=== PATIENT | female | born 1960 | race African-American/Black ===

== ENCOUNTER 2023-11-10 19:08 | Emergency (ER) | payer MEDICAID, OTHER ==
[~2023-11-10] VITALS: Ht 162.6 cm; Wt 81.6 kg
[2023-11-10 19:19] VITALS: BP 180/102; PULSE 103; RESP 16; TEMP 98.2; O2SAT 99
[2023-11-10 20:47] LABS: BASOPHILS % 0.7 % (0.0-2.0); EOSINOPHILS % 0.5 % (0.0-5.0); HEMATOCRIT. 39.4 % (36.0-48.0); HEMOGLOBIN. 13.2 g/dL (12.0-16.0); LYMPHOCYTES % 33.4 % (20.0-50.0); MEAN CORPUSCULAR HEMOGLOBIN 28.8 pg (28.0-32.0); MEAN CORPUSCULAR HGB CONC 33.5 g/dL (31.0-37.0); MEAN CORPUSCULAR VOLUME 86.1 fL (81.0-99.0); MEAN PLATELET VOLUME 8.6 fl (7.4-10.4); MONOCYTES % 5.3 % (2.0-8.0); NEUTROPHILS % 60.1 % (40.0-76.0); PLATELET 370 x1000/uL (130-400); RED BLOOD CELL COUNT 4.57 mill/uL (4.2-5.4); RED CELL DISTRIBUTION WIDTH 13.8 % (11.6-14.6); WHITE BLOOD COUNT 6.6 x1000/uL (4.5-11.0)
[2023-11-10 20:58] LABS: CHLORIDE 105 mEq/L (98-107); SODIUM 136 mEq/L (136-145)
[2023-11-10 20:59] LABS: CALCIUM 9.1 mg/dL (8.7-10.4); CARBON DIOXIDE 23 mEq/L (21-32)
[2023-11-10 21:04] LABS: CREATININE 1.6 mg/dL (0.6-1.0); GLUCOSE 205 mg/dL (70-105); TROPONIN I HIGH SENSITIVITY 12 ng/L (3.0-34); UREA NITROGEN BLOOD 12 mg/dL (9-23)
[2023-11-10 21:06] LABS: ALANINE AMINOTRANSFERASE 10 IU/L (10-49); ALBUMIN 4.1 g/dL (3.2-4.8); ASPARTATE AMINOTRANSFERASE 12 IU/L (<34); BILIRUBIN DIRECT 0.1 mg/dL (<=3.0); BILIRUBIN TOTAL 0.4 mg/dL (0.1-1.0); PROTEIN TOTAL 7.1 g/dL (6.0-8.3)
[2023-11-11 00:20] LABS: TROPONIN I HIGH SENSITIVITY 12 ng/L (3.0-34)
[2023-11-11] MEDS ORDERED: MAG-55 MT (03:02)
[2023-11-11] MEDS ORDERED: FAMO40TA70 MT (03:02)
== END 2023-11-11 03:35 | disposition home or self-care (01) ==
LOC: ER 19:08
DX: K44.9 Diaphragmatic hernia without obstruction or gangrene (principal); I31.39 Other pericardial effusion (noninflammatory); E11.9 Type 2 diabetes mellitus without complications
CPT/HCPCS: 36415; 71045; 74176; 80048; 80076; 84484; 85025; 93005; 99284

== ENCOUNTER 2024-09-25 06:56 | Inpatient (IN) | payer OTHER ==
[2024-09-25] VITALS (40 sets, daily range): BP systolic 66–208; BP diastolic 18–151; PULSE 75–89; RESP 12–27; TEMP 36.7–37.1; O2SAT 95–100
[~2024-09-25] VITALS: Ht 165.1 cm; Wt 83.3 kg
[~2024-09-25 06:56] MED LIST: FAMO40TA70 MT; MAG-55 MT
[2024-09-25] MEDS ORDERED: VANCOMYCIN 1000MG/250ML 250 ML IV STA (07:48)
[2024-09-25] MEDS ORDERED: VANCOMYCIN 1000MG/250ML 250 ML IV SCH (08:00)
[2024-09-25] MEDS ORDERED: CEFEPIME 2GM IN DEXT 5% 100ML IV ONE (08:00)
[2024-09-25 08:48] LABS: HEMATOCRIT. 33.9 % (36.0-48.0); HEMOGLOBIN. 10.7 g/dL (12.0-16.0); MEAN CORPUSCULAR HEMOGLOBIN 27.6 pg (28.0-32.0); MEAN CORPUSCULAR HGB CONC 31.6 g/dL (31.0-37.0); MEAN CORPUSCULAR VOLUME 87.3 fL (81.0-99.0); PLATELET 412 x1000/uL (130-400); RED BLOOD CELL COUNT 3.89 mill/uL (4.2-5.4); WHITE BLOOD COUNT 6.3 x1000/uL (4.5-11.0)
[2024-09-25 08:52] LABS: DIFFERENTIAL COMMENT 1
[2024-09-25] MEDS: MAGNESIUM 2 G PREMIX 50 ML IV ONE (08:53)
[2024-09-25 08:57] LABS: CHLORIDE 103 mEq/L (98-107); POTASSIUM 3.3 mEq/L (3.5-5.1); SODIUM 140 mEq/L (136-145)
[2024-09-25 08:58] LABS: CALCIUM 8.7 mg/dL (8.7-10.4); CARBON DIOXIDE 27 mEq/L (21-32)
[2024-09-25] MEDS ORDERED: VANCOMYCIN 1000MG/250ML 250 ML IV NR (09:00)
[2024-09-25 09:03] LABS: CREATININE 1.8 mg/dL (0.6-1.0); GLUCOSE 133 mg/dL (70-105); UREA NITROGEN BLOOD 38 mg/dL (9-23)
[2024-09-25 09:04] LABS: TROPONIN I HIGH SENSITIVITY 25 ng/L (3.0-34)
[2024-09-25 09:05] LABS: ALANINE AMINOTRANSFERASE 76 IU/L (10-49); ALBUMIN 3.2 g/dL (3.2-4.8); ASPARTATE AMINOTRANSFERASE 77 IU/L (<34); BILIRUBIN DIRECT 0.9 mg/dL (<=3.0)
[2024-09-25 09:06] LABS: BILIRUBIN TOTAL 1.2 mg/dL (0.1-1.0); PROTEIN TOTAL 7.1 g/dL (6.0-8.3)
[2024-09-25 09:07] LABS: ETHANOL BLOOD < 10 mg/dL (<10)
[2024-09-25 09:08] LABS: ACETAMINOPHEN < 2 ug/mL (10-30)
[2024-09-25 09:15] LABS: T4 FREE 1.4 ng/dL (0.89-1.76)
[2024-09-25 09:16] LABS: THYROID STIMULATING HORMONE 2.32 uIU/mL (0.55-4.78)
[2024-09-25] MEDS: HYDROCORTISONE SOD SUCCINATE 100 MG/2 ML VIAL IV ONE (09:17)
[2024-09-25 11:27] LABS: TROPONIN I HIGH SENSITIVITY 27 ng/L (3.0-34)
[2024-09-25] MEDS: LOSARTAN 50 MG TABLET PO SCH (11:30)
[2024-09-25] MEDS ORDERED: DEXTROSE 50% WATER 50ML SYRINGE IV PRN ×2 (11:45→16:30)
[2024-09-25] MEDS: VANCOMYCIN 1G PREMIX 200 ML IV NR (12:09)
[2024-09-25] MEDS: AMLODIPINE 5MG TABLET PO SCH ×2 (12:09→20:24)
[2024-09-25] MEDS: CEFEPIME 2GM/50ML DUPLEX 50 ML IV NR (12:10)
[2024-09-25] MEDS: POTASSIUM CHLORIDE 20MEQ TABLET SR PO SCH (12:27)
[2024-09-25] MEDS: BLOOD SUGAR DIAGNOSTIC STRIP TEST SCH ×2 (12:27→17:02)
[2024-09-25] MEDS ORDERED: IPRATROPIUM/ALBUTEROL 0.5-3(2.5)MG/3ML NEB HHN PRN (13:00)
[2024-09-25] MEDS ORDERED: ONDANSETRON HCL 4MG/2ML INJ IV PRN (13:00)
[2024-09-25] MEDS ORDERED: DOCUSATE SODIUM 100MG CAPSULE PO PRN (13:00)
[2024-09-25] MEDS ORDERED: ACETAMINOPHEN 325MG TABLET PO PRN ×2 (13:00)
[2024-09-25 13:18] LABS: ANISOCYTOSIS 1+; PLATELET ESTIMATE NORMAL
[2024-09-25 13:19] LABS: GIANT PLATELETS FEW
[2024-09-25] MEDS: CLONIDINE 0.1MG TABLET PO PRN (13:30)
[2024-09-25] MEDS: GUAIFENESIN 200MG/10ML SUGAR FREE UDC PO PRN (14:19)
[2024-09-25] MEDS: HYDRALAZINE 20MG/ML VIAL IV PRN (15:00)
[2024-09-25] MEDS: ENOXAPARIN 30MG/0.3ML SYR SUBCUT SCH (17:29)
[2024-09-25] MEDS: INSULIN LISPRO 100 UNITS/ML SUBCUT SCH (17:30)
[2024-09-25 19:28] LABS: TROPONIN I HIGH SENSITIVITY 35 ng/L (3.0-34)
[2024-09-25] MEDS: FAMOTIDINE 20MG TABLET PO SCH (20:23)
[2024-09-25] MEDS: ATORVASTATIN CALCIUM 40MG TABLET PO SCH (20:24)
[2024-09-25 20:50] LABS: CLARITY URINE CLOUDY (CLEAR); COLOR URINE DARK YELLOW (YELLOW); GLUCOSE URINE 3+ (NEGATIVE); KETONES URINE NEGATIVE (NEGATIVE); LEUKOCYTE ESTERASE URINE NEGATIVE (NEGATIVE); NITRITE URINE NEGATIVE (NEGATIVE); OCCULT BLOOD URINE 2+ (NEGATIVE); PH URINE 5.5 (4.5-8.0); PROTEIN URINE 4+ (NEGATIVE); SPECIFIC GRAVITY URINE 1.027 (1.005-1.030)
[2024-09-25 21:07] LABS: COARSE GRANULAR CASTS URINE 0-5 /lpf
[2024-09-25 21:08] LABS: BACTERIA URINE TRACE; RBC URINE 0-2 /hpf (0-2); SQUAMOUS EPITHELIAL CELL URINE RARE /lpf (RARE/1+); WBC URINE NONE SEEN /hpf (0-2)
[2024-09-25 21:20] LABS: *AMPHETAMINES SCREEN URINE NEGATIVE (NEGATIVE); *BARBITURATES SCREEN URINE NEGATIVE (NEGATIVE); *BENZODIAZEPINES SCREEN URINE NEGATIVE (NEGATIVE)
[2024-09-25 21:21] LABS: *COCAINE SCREEN URINE NEGATIVE (NEGATIVE); CANNABINOID URINE SCREEN NEGATIVE (NEGATIVE); ECSTASY MDMA SCREEN URINE NEGATIVE (NEGATIVE); METHADONE URINE SCREEN NEGATIVE (NEGATIVE); OPIATES URINE SCREEN NEGATIVE (NEGATIVE); PHENCYCLIDINE URINE SCREEN NEGATIVE (NEGATIVE)
[2024-09-25 22:47] LABS: IRON 75 ug/dL (50-170)
[2024-09-25 22:48] LABS: TRIGLYCERIDE 49 mg/dL (0-150)
[2024-09-25 22:49] LABS: LDL CHOLESTEROL 114 mg/dL (5-100)
[2024-09-25 22:50] LABS: CHOLESTEROL 252 mg/dL (<200); HDL CHOLESTEROL 85 mg/dL (>65)
[2024-09-25 22:51] LABS: TOTAL IRON BINDING CAPACITY 356 ug/dl (250-425)
[2024-09-25 22:55] LABS: FOLIC ACID (FOLATE) SERUM 8.27 ng/mL (>5.38)
[2024-09-25 22:56] LABS: FERRITIN 200 ng/mL (10-291); VITAMIN B12 SERUM 1311 pg/mL (211-911)
[2024-09-25 23:06] LABS: HEPATITIS B SURFACE ANTIGEN NEGATIVE (Negative)
[2024-09-25 23:27] LABS: HEPATITIS A AB IGM NEGATIVE (Negative)
[2024-09-25 23:28] LABS: HEPATITIS B CORE AB IGM NEGATIVE (Negative); HEPATITIS C AB NON REACTIVE (Neg) (Negative)
[2024-09-26] VITALS (37 sets, daily range): BP systolic 96–189; BP diastolic 31–123; PULSE 75–88; RESP 0–31; TEMP 36.4–37.2; O2SAT 94–100
[2024-09-26 01:06] LABS: TROPONIN I HIGH SENSITIVITY 35 ng/L (3.0-34)
[2024-09-26 07:07] LABS: CARBON DIOXIDE 27 mEq/L (21-32); CHLORIDE 103 mEq/L (98-107); POTASSIUM 3.2 mEq/L (3.5-5.1); SODIUM 140 mEq/L (136-145)
[2024-09-26 07:08] LABS: CALCIUM 8.7 mg/dL (8.7-10.4)
[2024-09-26 07:13] LABS: CREATININE 2.2 mg/dL (0.6-1.0); GLUCOSE 128 mg/dL (70-105); UREA NITROGEN BLOOD 44 mg/dL (9-23)
[2024-09-26 07:14] LABS: ALANINE AMINOTRANSFERASE 79 IU/L (10-49); ASPARTATE AMINOTRANSFERASE 73 IU/L (<34)
[2024-09-26 07:15] LABS: BILIRUBIN TOTAL 0.9 mg/dL (0.1-1.0); PROTEIN TOTAL 6.6 g/dL (6.0-8.3)
[2024-09-26 08:34] LABS: HEMATOCRIT 32.3 % (36.0-48.0); HEMOGLOBIN 10.6 g/dL (12.0-16.0); MEAN CORPUSCULAR HEMOGLOBIN 28.2 pg (28.0-32.0); MEAN CORPUSCULAR HGB CONC 32.8 g/dL (31.0-37.0); MEAN CORPUSCULAR VOLUME 86.1 fL (81.0-99.0); PLATELET 416 x1000/uL (130-400); RED BLOOD CELL COUNT 3.75 mill/uL (4.2-5.4); RED CELL DISTRIBUTION WIDTH 16.1 % (11.6-14.6); WHITE BLOOD COUNT 10.6 x1000/uL (4.5-11.0)
[2024-09-26] MEDS ORDERED: QUETIAPINE FUMARATE 25MG TABLET PO SCH (09:00)
[2024-09-26 10:10] LABS: PHOSPHORUS 4.3 mg/dL (2.5-4.9)
[2024-09-26] MEDS: AMLODIPINE 5MG TABLET PO SCH (10:53)
[2024-09-26] MEDS: LOSARTAN 100 MG TABLET PO SCH (10:54)
[2024-09-26] MEDS: POTASSIUM CHLORIDE 20MEQ/PACKET PO SCH (10:54)
[2024-09-26] MEDS ORDERED: AMLODIPINE 10MG TABLET PO ONE (13:00)
[2024-09-26] MEDS ORDERED: OLANZAPINE 5MG TABLET ODT PO PRN (13:15)
[2024-09-26] MEDS: PERMETHRIN 5% CREAM 60GM TOP NR (15:00)
[2024-09-27] VITALS: BP_SYST 137; BP_SYST 162; BP_DIAS 71; PULSE 69; PULSE 78; RESP 20; TEMP 36.1; TEMP 36.4; O2SAT 94; O2SAT 96
[2024-09-27 04:00] VITALS: BP 138/77; PULSE 78; RESP 20; TEMP 36.4; O2SAT 78
[2024-09-27] MEDS: AMLODIPINE 10MG TABLET PO SCH (08:24)
== END 2024-09-27 09:28 | disposition home or self-care (01) | DRG 812 ==
LOC: ER 06:56 → CVICU 09:23 → EDBEDREQ 09:33 → EDBEDREQSVC 09:33 → EDBEDREQTM 09:33 → EDBEDREQ 09:34 → 7EST 09-26 22:38
PROVIDERS: ADMIT Hospitalist; ATTEND Hospitalist
PROC: GZ56ZZZ Individual Psychotherapy, Supportive (ICD-10-PCS; principal; 2024-09-26)
DX: T38.3X1A Poisoning by insulin and oral hypoglycemic [antidiabetic] drugs, accidental (unintentional), initial encounter (principal); G93.41 Metabolic encephalopathy; N17.9 Acute kidney failure, unspecified; E11.649 Type 2 diabetes mellitus with hypoglycemia without coma; E11.22 Type 2 diabetes mellitus with diabetic chronic kidney disease; D75.839 Thrombocytosis, unspecified; D64.9 Anemia, unspecified; E78.5 Hyperlipidemia, unspecified; E87.6 Hypokalemia; I16.1 Hypertensive emergency; F20.9 Schizophrenia, unspecified; I13.10 Hypertensive heart and chronic kidney disease without heart failure, with stage 1 through stage 4 chronic kidney disease, or unspecified chronic kidney disease; K76.0 Fatty (change of) liver, not elsewhere classified; G35 Multiple sclerosis; L29.89 Other pruritus; N18.9 Chronic kidney disease, unspecified; Z91.199 Patient's noncompliance with other medical treatment and regimen due to unspecified reason; Z79.899 Other long term (current) drug therapy; Z79.4 Long term (current) use of insulin; Z79.01 Long term (current) use of anticoagulants; Y92.89 Other specified places as the place of occurrence of the external cause; I45.81 Long QT syndrome
CPT/HCPCS: 36415; 71045; 74176; 80048; 80053; 80061; 80076; 80305; 80307; 80320; 80329; 81003; 82024; 82088; 82533; 82607; 82728; 82746; 82962; 83036; 83540; 83550; 83605; 83735; 84100; 84439; 84443; 84484; 85025; 85027; 86705; 86709; 87340; 93005; 93970; 99291; A4606; J0360; J0692; J1650; J1720; J1815; J3370; J3475; G0480

== ENCOUNTER 2024-11-24 11:47 | Emergency (ER) | payer OTHER ==
[~2024-11-24] VITALS: Ht 170.2 cm; Wt 7.0 kg
[~2024-11-24 11:47] MED LIST changes: +APIX2.5T PO; +FAMO40TA7 PO; +HYDR50TA39 PO; +LOSA100T33 PO; +METO-539 PO; +NIFE-32 MT
[2024-11-24 11:55] VITALS: BP 123/66; PULSE 67; RESP 18; TEMP 36.7; O2SAT 99
== END 2024-11-24 12:50 | disposition home or self-care (01) ==
LOC: ER 11:47
DX: F20.9 Schizophrenia, unspecified (principal); E11.9 Type 2 diabetes mellitus without complications; Z79.01 Long term (current) use of anticoagulants; Z79.899 Other long term (current) drug therapy
CPT/HCPCS: 99283

== ENCOUNTER 2024-11-24 14:18 | Emergency (ER) | payer OTHER ==
[~2024-11-24] VITALS: Ht 162.6 cm; Wt 24.6 kg
[2024-11-24 14:20] VITALS: O2SAT 99
[2024-11-24] MEDS ORDERED: LORAZEPAM 2MG/ML INJ IM STA (14:25)
[2024-11-24] MEDS: DIPHENHYDRAMINE 50MG/ML VIAL IM STA (14:43)
[2024-11-24] MEDS: LORAZEPAM 2MG/ML UD SYRINGE IM SCH (14:43)
[2024-11-24 16:11] LABS: HEMATOCRIT. 31.3 % (36.0-48.0); HEMOGLOBIN. 9.9 g/dL (12.0-16.0); MEAN CORPUSCULAR HGB CONC 31.6 g/dL (31.0-37.0); MEAN CORPUSCULAR VOLUME 88.6 fL (81.0-99.0); MEAN PLATELET VOLUME 8.4 fl (7.4-10.4); PLATELET 382 x1000/uL (130-400); RED BLOOD CELL COUNT 3.53 mill/uL (4.2-5.4); WHITE BLOOD COUNT 6.4 x1000/uL (4.5-11.0)
[2024-11-24 16:15] LABS: DIFFERENTIAL COMMENT 1
[2024-11-24 16:18] LABS: CARBON DIOXIDE 20 mEq/L (21-32); CHLORIDE 105 mEq/L (98-107); POTASSIUM 4.4 mEq/L (3.5-5.1); SODIUM 134 mEq/L (136-145)
[2024-11-24 16:19] LABS: CALCIUM 7.9 mg/dL (8.7-10.4)
[2024-11-24 16:24] LABS: CREATININE 4.6 mg/dL (0.6-1.0); ETHANOL BLOOD < 10 mg/dL (<10); GLUCOSE 72 mg/dL (70-105); UREA NITROGEN BLOOD 40 mg/dL (9-23)
[2024-11-24 16:42] LABS: ANISOCYTOSIS 1+; PLATELET ESTIMATE NORMAL
[2024-11-25 12:14] LABS: CLARITY URINE CLEAR (CLEAR); COLOR URINE DARK YELLOW (YELLOW); GLUCOSE URINE NEGATIVE (NEGATIVE); KETONES URINE NEGATIVE (NEGATIVE); LEUKOCYTE ESTERASE URINE NEGATIVE (NEGATIVE); NITRITE URINE NEGATIVE (NEGATIVE); OCCULT BLOOD URINE 1+ (NEGATIVE); PH URINE 7.5 (4.5-8.0); PROTEIN URINE 2+ (NEGATIVE); SPECIFIC GRAVITY URINE 1.008 (1.005-1.030)
[2024-11-25 12:30] LABS: *AMPHETAMINES SCREEN URINE NEGATIVE (NEGATIVE)
[2024-11-25 12:31] LABS: *BARBITURATES SCREEN URINE NEGATIVE (NEGATIVE); *BENZODIAZEPINES SCREEN URINE NEGATIVE (NEGATIVE); *COCAINE SCREEN URINE NEGATIVE (NEGATIVE); CANNABINOID URINE SCREEN NEGATIVE (NEGATIVE); ECSTASY MDMA SCREEN URINE NEGATIVE (NEGATIVE); METHADONE URINE SCREEN NEGATIVE (NEGATIVE); OPIATES URINE SCREEN NEGATIVE (NEGATIVE); PHENCYCLIDINE URINE SCREEN NEGATIVE (NEGATIVE)
[2024-11-25 12:32] LABS: RBC URINE 0-2 /hpf (0-2)
[2024-11-25 12:33] LABS: WBC URINE 0-2 /hpf (0-2)
[2024-11-25 12:34] LABS: BACTERIA URINE TRACE; SQUAMOUS EPITHELIAL CELL URINE RARE /lpf (RARE/1+)
[2024-11-25] MEDS: NIFEDIPINE XL 60MG TAB PO ONE (21:10)
[2024-11-25] MEDS: METOPROLOL SUCCINATE 50MG ER TABLET PO STA (21:11)
[2024-11-25] MEDS ORDERED: HYDRALAZINE HCL 50MG TABLET PO ONE ×2 (22:00→23:00)
[2024-11-25] MEDS: HYDRALAZINE HCL 25MG TABLET PO NR (22:12)
[2024-11-25 22:56] VITALS: BP 165/88; PULSE 65; RESP 18; TEMP 37.6; O2SAT 99
[2024-11-25] MEDS ORDERED: HYDRALAZINE HCL 25MG TABLET PO NR (23:15)
== END 2024-11-25 17:18 ==
LOC: ER 14:18 → EDBEDREQ 11-25 23:20
DX: F20.9 Schizophrenia, unspecified (principal); F91.9 Conduct disorder, unspecified; E11.9 Type 2 diabetes mellitus without complications; Z79.01 Long term (current) use of anticoagulants; Z79.899 Other long term (current) drug therapy; Z20.822 Contact with and (suspected) exposure to COVID-19
CPT/HCPCS: 80305; 80048; 81003; 80320; 85025; 36415; 96372; 99285; 87426; J1200; J2060; G0480